=== PATIENT | male | born 1960 | race African-American/Black ===

== ENCOUNTER 2022-01-07 23:33 | Inpatient (IN) | payer BC, MEDICAID ==
[~2022-01-07] VITALS: Ht 167.6 cm; Wt 86.7 kg
[2022-01-08] VITALS (27 sets, daily range): BP systolic 99–151; BP diastolic 59–104
[2022-01-08] MEDS ORDERED: DEXTROSE 50% WATER 50ML SYRINGE IV ONE ×2 (00:15→03:26)
[2022-01-08] MEDS ORDERED: DEXT 10% WATER 1,000 ML IV ONE (00:15)
[2022-01-08 00:46] LABS: HEMATOCRIT 39.1 % (42.0-52.0); MEAN CORPUSCULAR HEMOGLOBIN 28.4 pg (28.0-32.0); MEAN CORPUSCULAR VOLUME 85.2 fL (80.0-94.0); PLATELET 251 x1000/uL (130-400); RED BLOOD CELL COUNT 4.59 mill/uL (4.7-6.1); RED CELL DISTRIBUTION WIDTH 13.4 % (11.6-14.6)
[2022-01-08 00:53] LABS: CHLORIDE 97 mEq/L (98-107)
[2022-01-08] MEDS ORDERED: POTASSIUM CHLORIDE 20MEQ TABLET SR PO SCH (01:30)
[2022-01-08] MEDS ORDERED: POTASSIUM CHLORIDE INJ 40 MEQ in DEXT 5% WATER 250 ML IV ONE (01:30)
[2022-01-08] MEDS: KCL 20MEQ/100ML PREMIX 100 ML IV SCH ×2 (02:55→05:41)
[2022-01-08] MEDS ORDERED: DEXTROSE 50% WATER 50ML SYRINGE IV PRN ×2 (03:45→19:00)
[2022-01-08] MEDS ORDERED: SODIUM CHLORIDE 0.9% 250 ML IV SCH (03:45)
[2022-01-08] MEDS: BLOOD SUGAR DIAGNOSTIC STRIP TEST SCH ×16 (04:04→21:00)
[2022-01-08] MEDS ORDERED: IPRATROPIUM/ALBUTEROL 0.5-3(2.5)MG/3ML NEB HHN PRN (09:45)
[2022-01-08] MEDS ORDERED: DEXT 5%/0.9% NACL 1,000 ML IV SCH (09:45)
[2022-01-08] MEDS ORDERED: ACETAMINOPHEN 325MG TABLET PO PRN (09:45)
[2022-01-08] MEDS ORDERED: ONDANSETRON HCL 4MG/2ML INJ IV PRN (09:45)
[2022-01-08] MEDS ORDERED: CLONIDINE 0.1MG TABLET PO PRN (09:45)
[2022-01-08] MEDS ORDERED: DIPHENHYDRAMINE 50MG/ML VIAL IV PRN (09:45)
[2022-01-08] MEDS ORDERED: DEXT 10% WATER 1,000 ML IV SCH (10:30)
[2022-01-08] MEDS ORDERED: POTASSIUM CHLORIDE 20MEQ TABLET SR PO NR (12:30)
[2022-01-08] MEDS: INSULIN LISPRO 100 UNITS/ML SUBCUT SCH (21:00)
[2022-01-09] VITALS (7 sets, daily range): BP systolic 128–151; BP diastolic 45–86
[2022-01-09 06:59] LABS: BASOPHILS % 0.8 % (0.0-2.0); EOSINOPHILS % 0.6 % (0.0-5.0); HEMOGLOBIN. 13.9 g/dL (14.0-18.0); MEAN CORPUSCULAR VOLUME 85.5 fL (80.0-94.0); MEAN PLATELET VOLUME 7.4 fl (7.4-10.4); MONOCYTES % 10.4 % (2.0-8.0); NEUTROPHILS % 70.2 % (40.0-76.0); PLATELET 300 x1000/uL (130-400); RED CELL DISTRIBUTION WIDTH 13.4 % (11.6-14.6)
[2022-01-09 07:17] LABS: CHLORIDE 102 mEq/L (98-107)
[2022-01-09] MEDS: BLOOD SUGAR DIAGNOSTIC STRIP TEST SCH (07:42)
[2022-01-09] MEDS: INSULIN LISPRO 100 UNITS/ML SUBCUT SCH (08:45)
[2022-01-09] MEDS ORDERED: AMLO10TA80 PO (10:54)
[2022-01-09] MEDS ORDERED: GABA300S PO (10:54)
[2022-01-09] MEDS ORDERED: HYDR25TA PO (10:54)
[2022-01-09] MEDS ORDERED: GLIP5POW MC (10:54)
[2022-01-09] MEDS ORDERED: LEVO100T PO (10:54)
== END 2022-01-09 13:00 | disposition home or self-care (01) | DRG 639 ==
LOC: ER 23:33 → EDBEDREQTM 01-08 01:48 → EDBEDREQ 01-08 01:48 → MICUSO 01-08 02:20 → MICUNO 01-08 09:26 → MICUSO 01-08 20:22 → 5EST 01-08 23:00
PROVIDERS: ADMIT Internal Medicine; ATTEND Internal Medicine
DX: E11.649 Type 2 diabetes mellitus with hypoglycemia without coma (principal); E87.6 Hypokalemia; I10 Essential (primary) hypertension; Z79.4 Long term (current) use of insulin
CPT/HCPCS: 36415; 80053; 82962; 83036; 84132; 85025; 85027; 93005; 93970; 99285; J1815; J3480

== ENCOUNTER 2025-02-06 02:13 | Emergency (ER) | payer BC, MEDICAID ==
[~2025-02-06] VITALS: Ht 180.3 cm; Wt 74.0 kg
[~2025-02-06 02:13] MED LIST: AMLO10TA80 PO; GABA300S4 PO; HYDR25TA PO; LEVO100T PO
[2025-02-06 02:47] VITALS: O2SAT 97
[2025-02-06] MEDS: MAGNESIUM/ALUMINUM HYDROXIDE/SIMETHICONE 30ML UDC PO ONE (03:16)
[2025-02-06] MEDS: ONDANSETRON HCL 4MG/2ML INJ IV STA (03:16)
[2025-02-06] MEDS: VISCOUS LIDOCAINE 2% 15 ML UDC PO ONE (03:16)
[2025-02-06] MEDS: MORPHINE SULFATE 4 MG/ML INJ (FOR IV/IM USE) IV STA (03:16)
[2025-02-06 03:26] LABS: HEMATOCRIT. 41.1 % (42.0-52.0); HEMOGLOBIN. 13.7 g/dL (14.0-18.0); MEAN PLATELET VOLUME 6.9 fl (7.4-10.4); PLATELET 369 x1000/uL (130-400); RED BLOOD CELL COUNT 4.86 mill/uL (4.7-6.1); RED CELL DISTRIBUTION WIDTH 13.9 % (11.6-14.6)
[2025-02-06 03:48] LABS: CREATININE 1.3 mg/dL (0.6-1.3); ETHANOL BLOOD < 10 mg/dL (<10); TROPONIN I HIGH SENSITIVITY 8 ng/L (3.0-53); UREA NITROGEN BLOOD 19 mg/dL (9-23)
[2025-02-06 05:01] LABS: LYMPHOCYTES % MANUAL 3.0 % (20.0-50.0); MONOCYTES % MANUAL 3.0 % (2.0-8.0); NEUTROPHILS % MANUAL 94.0 % (45.0-75.0); PLATELET ESTIMATE NORMAL
[2025-02-06] MEDS: POTASSIUM CHLORIDE 20MEQ/PACKET PO NR (05:45)
[2025-02-06 05:53] LABS: INR 1.0
[2025-02-06 06:02] VITALS: BP 130/73; PULSE 94; RESP 17; TEMP 36.2; O2SAT 98
[2025-02-06] MEDS ORDERED: MAG355OR21 MT (06:02)
[2025-02-06] MEDS ORDERED: ONDA4TAB50 MT (06:02)
[2025-02-06] MEDS ORDERED: POTA-204 MT (06:02)
[2025-02-06] MEDS ORDERED: ACET-2708 MT (06:02)
== END 2025-02-06 06:20 | disposition home or self-care (01) ==
LOC: ER 02:13
DX: R10.13 Epigastric pain (principal); R07.89 Other chest pain; E11.9 Type 2 diabetes mellitus without complications; E87.6 Hypokalemia; I10 Essential (primary) hypertension; Z79.890 Hormone replacement therapy; Z79.899 Other long term (current) drug therapy
CPT/HCPCS: 80048; 80320; 83880; 83690; 85025; 85610; 85730; 84484; 36415; 71045; 76705; 93005; 96374; 96375; 99285; J2405; J2270; G0480